=== PATIENT | male | born 1990 | race African-American/Black ===

== ENCOUNTER 2018-04-11 22:24 | Emergency (ER) | payer SELFPAY ==
[~2018-04-11] VITALS: Ht 170.2 cm; Wt 59.0 kg
[2018-04-12] MEDS ORDERED: SODIUM CHLORIDE 0.9% 1,000 ML IV ONE (02:35)
[2018-04-12] MEDS ORDERED: DICYCLOMINE 10 MG/5 ML ORAL SYR PO STA (02:35)
[2018-04-12] MEDS ORDERED: ONDANSETRON HCL 4MG/2ML VIAL IV STA (02:35)
[2018-04-12] MEDS ORDERED: MORPHINE SULFATE 4 MG/ML CPJ (NOT FOR IM USE) IV STA (02:35)
[2018-04-12 03:02] LABS: HEMATOCRIT. 40.6 % (42.0-52.0); HEMOGLOBIN. 13.4 g/dL (14.0-18.0); MEAN CORPUSCULAR HEMOGLOBIN 27.9 pg (28.0-32.0); MEAN CORPUSCULAR VOLUME 84.2 fL (80.0-94.0); MEAN PLATELET VOLUME 7.6 fl (7.4-10.4); PLATELET 250 x1000/uL (130-400); RED BLOOD CELL COUNT 4.82 mill/uL (4.7-6.1)
[2018-04-12 03:06] LABS: CHLORIDE 103 mEq/L (98-107)
[2018-04-12] MEDS ORDERED: IOHEXOL-300 100 ML BOTTLE ONE (04:09)
[2018-04-12 04:23] LABS: CLARITY URINE CLEAR (CLEAR); COLOR URINE YELLOW (YELLOW); KETONES URINE NEGATIVE (NEGATIVE); LEUKOCYTE ESTERASE URINE NEGATIVE (NEGATIVE); NITRITE URINE NEGATIVE (NEGATIVE); OCCULT BLOOD URINE NEGATIVE (NEGATIVE); PH URINE 6.5 (4.5-8.0); PROTEIN URINE TRACE (NEGATIVE); SPECIFIC GRAVITY URINE 1.053 (1.005-1.030)
[2018-04-12 06:30] VITALS: BP 116/70
[2018-04-12 06:52] LABS: ATYPICAL LYMPHOCYTES 4
[2018-04-12 06:53] LABS: PLATELET ESTIMATE NORMAL
== END 2018-04-12 06:34 | disposition home or self-care (01) ==
LOC: ER 22:24
DX: K52.9 Noninfective gastroenteritis and colitis, unspecified (principal); F17.200 Nicotine dependence, unspecified, uncomplicated
CPT/HCPCS: 36415; 74177; 80053; 81003; 83690; 85025; 96361; 96374; 96375; 99285; J2270; J2405; J7030; Q9967; Z7610

== ENCOUNTER 2018-09-01 11:58 | Emergency (ER) | payer MEDICAID ==
[~2018-09-01] VITALS: Ht 170.2 cm; Wt 64.0 kg
[2018-09-01 12:04] VITALS: BP 128/64
[2018-09-01] MEDS ORDERED: BACITRACIN ZINC OINT UDPKT TOP ONE (15:00)
== END 2018-09-01 16:33 | disposition home or self-care (01) ==
LOC: ER 13:20
DX: M79.672 Pain in left foot (principal); M25.562 Pain in left knee; Z88.3 Allergy status to other anti-infective agents
CPT/HCPCS: 73630; 99284

== ENCOUNTER 2018-09-05 13:13 | Emergency (ER) | payer MEDICAID ==
[~2018-09-05] VITALS: Ht 170.2 cm; Wt 64.0 kg
[2018-09-05 13:36] VITALS: BP 122/62
== END 2018-09-05 17:30 | disposition left against medical advice (07) ==
LOC: ER 15:46
DX: Z53.21 Procedure and treatment not carried out due to patient leaving prior to being seen by health care provider (principal)

== ENCOUNTER 2019-03-08 10:44 | Emergency (ER) | payer MEDICAID ==
[~2019-03-08] VITALS: Ht 170.2 cm; Wt 66.0 kg
[2019-03-08 12:39] VITALS: BP 115/77
== END 2019-03-08 12:40 | disposition home or self-care (01) ==
LOC: ER 10:44
DX: T16.1XXA Foreign body in right ear, initial encounter (principal); X58.XXXA Exposure to other specified factors, initial encounter; Y93.89 Activity, other specified; Y92.89 Other specified places as the place of occurrence of the external cause; Y99.8 Other external cause status
CPT/HCPCS: 69200; 99284

== ENCOUNTER 2022-02-09 14:06 | Emergency (ER) | payer MEDICAID, OTHER ==
[~2022-02-09] VITALS: Ht 177.8 cm; Wt 85.0 kg
[~2022-02-09 14:06] MED LIST: ETOMIDATE 2MG/ML 10ML VIAL IV ONE; SUCCINYLCHOLINE CHLORIDE 200MG/10ML IV ONE
[2022-02-09] MEDS ORDERED: MORPHINE SULFATE 4 MG/ML CPJ (NOT FOR IM USE) IV STA (14:22)
[2022-02-09] MEDS ORDERED: TETANUS, DIPHTHERIA, PERTUSSIS VAC/PF 0.5ML (>10YR OLD) IM ONE (14:30)
[2022-02-09] MEDS ORDERED: ROCURONIUM BROMIDE 10MG/ML VIAL 5ML IV ONE (14:30)
[2022-02-09] MEDS ORDERED: PROPOFOL 10MG/ML 100ML 100 ML IV ONE (14:30)
[2022-02-09] MEDS: LACTATED RINGERS 1,000 ML IV SCH ×5 (14:30→20:30)
[2022-02-09] MEDS ORDERED: MIDAZOLAM 100MG/100ML PMX 100 ML IV PRN (14:55)
[2022-02-09] MEDS ORDERED: MIDAZOLAM HCL 2 MG/2 ML VIAL IM NR (14:55)
[2022-02-09] MEDS ORDERED: MIDAZOLAM HCL 100 MG in DEXT 5% WATER 80 ML IV ONE ×2 (15:00)
[2022-02-09 15:36] LABS: BASOPHILS % 0.9 % (0.0-2.0); EOSINOPHILS % 1.4 % (0.0-5.0); HEMATOCRIT. 39.4 % (42.0-52.0); LYMPHOCYTES % 29.1 % (20.0-50.0); MEAN CORPUSCULAR HEMOGLOBIN 27.5 pg (28.0-32.0); MEAN CORPUSCULAR VOLUME 83.1 fL (80.0-94.0); MEAN PLATELET VOLUME 7.7 fl (7.4-10.4); MONOCYTES % 10.1 % (2.0-8.0); NEUTROPHILS % 58.5 % (40.0-76.0); PLATELET 270 x1000/uL (130-400); RED BLOOD CELL COUNT 4.74 mill/uL (4.7-6.1); RED CELL DISTRIBUTION WIDTH 16.4 % (11.6-14.6)
[2022-02-09 15:42] LABS: CHLORIDE 109 mEq/L (98-107)
[2022-02-09 15:47] LABS: ETHANOL BLOOD < 10 mg/dL
[2022-02-09 15:51] LABS: CREATINE KINASE 205 IU/L (39-308)
[2022-02-09 16:02] LABS: CLARITY URINE CLEAR (CLEAR); COLOR URINE YELLOW (YELLOW); KETONES URINE NEGATIVE (NEGATIVE); LEUKOCYTE ESTERASE URINE NEGATIVE (NEGATIVE); NITRITE URINE NEGATIVE (NEGATIVE); OCCULT BLOOD URINE NEGATIVE (NEGATIVE); PROTEIN URINE TRACE (NEGATIVE); SPECIFIC GRAVITY URINE 1.021 (1.005-1.030)
[2022-02-09 16:26] LABS: *AMPHETAMINES SCREEN URINE PRESUMTIVE POSITIVE (NEGATIVE); *BARBITURATES SCREEN URINE NEGATIVE (NEGATIVE); *BENZODIAZEPINES SCREEN URINE PRESUMTIVE POSITIVE (NEGATIVE); *COCAINE SCREEN URINE NEGATIVE (NEGATIVE); METHADONE URINE SCREEN NEGATIVE (NEGATIVE)
[2022-02-09 16:27] LABS: CANNABINOID URINE SCREEN PRESUMTIVE POSITIVE (NEGATIVE); OPIATES URINE SCREEN NEGATIVE (NEGATIVE); PHENCYCLIDINE URINE SCREEN NEGATIVE (NEGATIVE)
[2022-02-09 17:20] LABS: BG BASE EXCESS -0.7 mmol/L (-2.0-2.0); BG CARBOXYHEMOGLOBIN 1.3 % (0.5-1.5); BG DEOXYHEMOGLOBIN 1.8 % (0.0-5.0); BG FRACTION INSPIRED OXYGEN 60; BG HCO3 ACT 24.9 mmol/L (22.0-26.0); BG METHEMOGLOBIN 0.3 % (0.0-1.5); BG OXYGEN SATURATION 98.2 % (92.0-98.5); BG OXYHEMOGLOBIN 96.6 % (94.0-97.0); BG PCO2 44.7 mmHg (35.0-45.0); BG PH 7.364 (7.350-7.450); BG PO2 140.5 mmHg (75.0-100.0); BG SAMPLE SITE LEFT RADIAL; BG TOTAL HEMOGLOBIN 13.4 g/dL (12.0-18.0); BG VENT MODE VENT - AC
[2022-02-09] MEDS ORDERED: FENTANYL 2500MCG/250ML PMX 250 ML IV PRN ×2 (19:45→20:15)
[2022-02-10] MEDS: LACTATED RINGERS 1,000 ML IV SCH ×5 (00:30→11:41)
[2022-02-10 12:30] VITALS: BP 118/63
== END 2022-02-10 13:00 | disposition short-term general hospital (02) ==
LOC: ER 14:06
DX: T20.26XA Burn of second degree of forehead and cheek, initial encounter (principal); T23.101A Burn of first degree of right hand, unspecified site, initial encounter; T31.0 Burns involving less than 10% of body surface; X08.8XXA Exposure to other specified smoke, fire and flames, initial encounter; T59.814A Toxic effect of smoke, undetermined, initial encounter; Z20.822 Contact with and (suspected) exposure to COVID-19; F13.10 Sedative, hypnotic or anxiolytic abuse, uncomplicated; F15.10 Other stimulant abuse, uncomplicated; F12.10 Cannabis abuse, uncomplicated; Y93.89 Activity, other specified; F20.9 Schizophrenia, unspecified; I51.7 Cardiomegaly; Y92.89 Other specified places as the place of occurrence of the external cause
CPT/HCPCS: 31500; 36415; 36600; 71045; 80053; 80305; 80307; 80320; 80329; 81003; 82375; 82550; 82805; 83690; 85025; 87426; 90471; 90715; 94003; 96361; 96372; 96374; 96375; 99291; J0330; J2250; J2704; J3010; J3490; J7120; Z7610; 94002; A4315; G0480

== ENCOUNTER 2022-02-25 06:41 | Inpatient (IN) | payer MEDICAID, OTHER ==
[2022-02-25] VITALS (28 sets, daily range): BP systolic 130–156; BP diastolic 92–117
[~2022-02-25] VITALS: Ht 180.3 cm; Wt 72.1 kg
[2022-02-25] MEDS ORDERED: PROPOFOL 10MG/ML 100ML 100 ML IV ONE ×2 (07:30→10:45)
[2022-02-25] MEDS ORDERED: MIDAZOLAM HCL 100 MG in DEXT 5% WATER 80 ML IV ONE (07:30)
[2022-02-25] MEDS ORDERED: ETOMIDATE 2MG/ML 10ML VIAL IV ONE (07:44)
[2022-02-25] MEDS ORDERED: VECURONIUM BROMIDE 10 MG/VIAL IV ONE (07:44)
[2022-02-25] MEDS ORDERED: SODIUM CHLORIDE 0.9% 10ML VIAL ONE (07:44)
[2022-02-25] MEDS ORDERED: MIDAZOLAM 100MG/100ML PREMIX IV PRN (07:45)
[2022-02-25] MEDS ORDERED: FENTANYL 2500MCG/250ML PMX 250 ML IV STA (07:53)
[2022-02-25] MEDS ORDERED: ONDANSETRON HCL 4MG/2ML INJ IV ONE (08:30)
[2022-02-25] MEDS ORDERED: FENTANYL 2500MCG/250ML PMX 250 ML IV PRN (08:30)
[2022-02-25 08:36] LABS: CLARITY URINE CLEAR (CLEAR); COLOR URINE YELLOW (YELLOW); KETONES URINE 1+ (NEGATIVE); LEUKOCYTE ESTERASE URINE NEGATIVE (NEGATIVE); NITRITE URINE NEGATIVE (NEGATIVE); OCCULT BLOOD URINE NEGATIVE (NEGATIVE); PROTEIN URINE NEGATIVE (NEGATIVE); SPECIFIC GRAVITY URINE 1.024 (1.005-1.030)
[2022-02-25 08:44] LABS: BG CARBOXYHEMOGLOBIN 1.7 % (0.5-1.5); BG DEOXYHEMOGLOBIN 0.4 % (0.0-5.0); BG FRACTION INSPIRED OXYGEN 100; BG HCO3 ACT 25.2 mmol/L (22.0-26.0); BG METHEMOGLOBIN 0.3 % (0.0-1.5); BG OXYGEN SATURATION 99.6 % (92.0-98.5); BG OXYHEMOGLOBIN 97.6 % (94.0-97.0); BG PCO2 52.6 mmHg (35.0-45.0); BG PH 7.298 (7.350-7.450); BG PO2 276.9 mmHg (75.0-100.0); BG SAMPLE SITE RIGHT RADIAL; BG TOTAL HEMOGLOBIN 14.6 g/dL (12.0-18.0); BG VENT MODE VENT - AC
[2022-02-25 08:49] LABS: BASOPHILS % 1.1 % (0.0-2.0); EOSINOPHILS % 0.7 % (0.0-5.0); HEMATOCRIT. 47.2 % (42.0-52.0); HEMOGLOBIN. 15.8 g/dL (14.0-18.0); LYMPHOCYTES % 22.2 % (20.0-50.0); MEAN CORPUSCULAR HEMOGLOBIN 28.5 pg (28.0-32.0); MEAN PLATELET VOLUME 7.6 fl (7.4-10.4); MONOCYTES % 6.8 % (2.0-8.0); NEUTROPHILS % 69.2 % (40.0-76.0); PLATELET 358 x1000/uL (130-400); RED BLOOD CELL COUNT 5.56 mill/uL (4.7-6.1); RED CELL DISTRIBUTION WIDTH 15.9 % (11.6-14.6)
[2022-02-25 09:02] LABS: *AMPHETAMINES SCREEN URINE PRESUMTIVE POSITIVE (NEGATIVE); *BARBITURATES SCREEN URINE NEGATIVE (NEGATIVE); *BENZODIAZEPINES SCREEN URINE NEGATIVE (NEGATIVE); *COCAINE SCREEN URINE NEGATIVE (NEGATIVE)
[2022-02-25 09:03] LABS: CHLORIDE 107 mEq/L (98-107)
[2022-02-25 09:03] LABS: CANNABINOID URINE SCREEN PRESUMTIVE POSITIVE (NEGATIVE); METHADONE URINE SCREEN NEGATIVE (NEGATIVE); OPIATES URINE SCREEN NEGATIVE (NEGATIVE); PHENCYCLIDINE URINE SCREEN NEGATIVE (NEGATIVE)
[2022-02-25 09:07] LABS: ETHANOL BLOOD < 10 mg/dL
[2022-02-25] MEDS ORDERED: CALCIUM GLUCONATE 1GM PREMIX 50 ML IV ONE (11:45)
[2022-02-25] MEDS ORDERED: CEFTRIAXONE 1 G PREMIX 50 ML IV ONE (12:00)
[2022-02-25] MEDS ORDERED: ONDANSETRON HCL 4MG/2ML INJ IV PRN (12:15)
[2022-02-25] MEDS ORDERED: SODIUM POLYSTYRENE SULFONATE 15 G/60 ML BOT NG NR (12:30)
[2022-02-25] MEDS ORDERED: PIPERACILLIN/TAZ 3.375G PREMIX 50 ML IV NR (12:30)
[2022-02-25] MEDS: PANTOPRAZOLE SODIUM 40 MG/VIAL IV SCH (12:35)
[2022-02-25] MEDS: DEXT 5%/0.45% NACL 1000ML 1,000 ML IV SCH (12:36)
[2022-02-25] MEDS ORDERED: LIDOCAINE HCL 1% 10 MG/ML 10ML VIAL ONE (12:56)
[2022-02-25] MEDS: ENOXAPARIN 40MG/0.4ML SYR SUBCUT SCH (13:13)
[2022-02-25] MEDS ORDERED: IPRATROPIUM/ALBUTEROL 0.5-3(2.5)MG/3ML NEB HHN PRN (14:00)
[2022-02-25] MEDS ORDERED: FENTANYL CITRATE/PF 1,000 MCG in SODIUM CHLORIDE 0.9% 80 ML IV PRN (14:00)
[2022-02-25] MEDS ORDERED: MIDAZOLAM HCL 100 MG in SODIUM CHLORIDE 0.9% 80 ML IV PRN (14:00)
[2022-02-25] MEDS: PROPOFOL 10MG/ML 100ML 100 ML IV PRN ×3 (14:49→22:56)
[2022-02-25] MEDS: IPRATROPIUM/ALBUTEROL 0.5-3(2.5)MG/3ML NEB HHN SCH (20:38)
[2022-02-25] MEDS: RISPERIDONE 1MG TABLET PO SCH (21:13)
[2022-02-25] MEDS ORDERED: PIPERACILLIN/TAZOBACTAM 3.375 G in DEXTROSE 5% WATER 50 ML IV SCH (22:00)
[2022-02-25] MEDS: PIPERACILLIN/TAZOBACTAM 3.375 G in DEXTROSE 5% WATER 50 ML IV SCH (22:55)
[2022-02-25] MEDS: MIDAZOLAM HCL 100 MG in SODIUM CHLORIDE 0.9% 80 ML IV PRN (22:57)
[2022-02-26] VITALS (91 sets, daily range): BP systolic 105–166; BP diastolic 57–120
[2022-02-26] MEDS: IPRATROPIUM/ALBUTEROL 0.5-3(2.5)MG/3ML NEB HHN SCH ×5 (00:39→23:54)
[2022-02-26] MEDS: DEXT 5%/0.45% NACL 1000ML 1,000 ML IV SCH ×3 (02:49→23:59)
[2022-02-26] MEDS: PROPOFOL 10MG/ML 100ML 100 ML IV PRN ×5 (02:50→20:30)
[2022-02-26 05:22] LABS: BASOPHILS % 0.7 % (0.0-2.0); EOSINOPHILS % 1.5 % (0.0-5.0); HEMATOCRIT. 40.2 % (42.0-52.0); HEMOGLOBIN. 13.3 g/dL (14.0-18.0); LYMPHOCYTES % 25.8 % (20.0-50.0); MEAN CORPUSCULAR VOLUME 84.7 fL (80.0-94.0); MEAN PLATELET VOLUME 8.2 fl (7.4-10.4); MONOCYTES % 9.4 % (2.0-8.0); NEUTROPHILS % 62.6 % (40.0-76.0); PLATELET 313 x1000/uL (130-400); RED BLOOD CELL COUNT 4.75 mill/uL (4.7-6.1); RED CELL DISTRIBUTION WIDTH 15.5 % (11.6-14.6)
[2022-02-26 05:31] LABS: CHLORIDE 108 mEq/L (98-107)
[2022-02-26] MEDS: PIPERACILLIN/TAZOBACTAM 3.375 G in DEXTROSE 5% WATER 50 ML IV SCH ×3 (06:05→20:30)
[2022-02-26] MEDS: FENTANYL 2500MCG/250ML PMX 250 ML IV PRN (06:06)
[2022-02-26 07:43] LABS: BG BASE EXCESS 1.9 mmol/L (-2.0-2.0); BG CARBOXYHEMOGLOBIN 0.1 % (0.5-1.5); BG DEOXYHEMOGLOBIN 0.7 % (0.0-5.0); BG HCO3 ACT 25.5 mmol/L (22.0-26.0); BG METHEMOGLOBIN 0.1 % (0.0-1.5); BG OXYGEN SATURATION 99.3 % (92.0-98.5); BG OXYHEMOGLOBIN 99.1 % (94.0-97.0); BG PCO2 36.9 mmHg (35.0-45.0); BG PH 7.458 (7.350-7.450); BG PO2 211.3 mmHg (75.0-100.0); BG SAMPLE SITE RIGHT RADIAL; BG TOTAL HEMOGLOBIN 13.4 g/dL (12.0-18.0); BG VENT MODE VENT - AC
[2022-02-26] MEDS ORDERED: POTASSIUM CHLORIDE 20MEQ/PACKET PO SCH (08:00)
[2022-02-26] MEDS: RISPERIDONE 1MG TABLET PO SCH ×2 (08:35→20:30)
[2022-02-26] MEDS: PANTOPRAZOLE SODIUM 40 MG/VIAL IV SCH (08:35)
[2022-02-26] MEDS ORDERED: INFLUENZA VACCINE 05/PF 0.5 ML SYRINGE IM ONE (09:00)
[2022-02-26] MEDS: ENOXAPARIN 40MG/0.4ML SYR SUBCUT SCH (12:14)
[2022-02-27] VITALS (98 sets, daily range): BP systolic 83–153; BP diastolic 42–115
[2022-02-27] MEDS: PROPOFOL 10MG/ML 100ML 100 ML IV PRN ×6 (00:02→22:47)
[2022-02-27] MEDS: FENTANYL 2500MCG/250ML PMX 250 ML IV PRN ×2 (03:05→15:10)
[2022-02-27] MEDS: MIDAZOLAM HCL 100 MG in SODIUM CHLORIDE 0.9% 80 ML IV PRN ×2 (03:07→15:11)
[2022-02-27] MEDS: PIPERACILLIN/TAZOBACTAM 3.375 G in DEXTROSE 5% WATER 50 ML IV SCH ×3 (06:00→21:25)
[2022-02-27 08:19] LABS: BASOPHILS % 0.2 % (0.0-2.0); EOSINOPHILS % 2.1 % (0.0-5.0); HEMATOCRIT. 37.2 % (42.0-52.0); HEMOGLOBIN. 12.3 g/dL (14.0-18.0); LYMPHOCYTES % 25.3 % (20.0-50.0); MEAN CORPUSCULAR HEMOGLOBIN 28.2 pg (28.0-32.0); MEAN PLATELET VOLUME 8.1 fl (7.4-10.4); MONOCYTES % 13.5 % (2.0-8.0); NEUTROPHILS % 58.9 % (40.0-76.0); PLATELET 271 x1000/uL (130-400); RED BLOOD CELL COUNT 4.37 mill/uL (4.7-6.1); RED CELL DISTRIBUTION WIDTH 15.8 % (11.6-14.6)
[2022-02-27] MEDS: RISPERIDONE 1MG TABLET PO SCH ×2 (08:21→21:25)
[2022-02-27] MEDS: ACETAMINOPHEN 325MG TABLET PO PRN ×2 (08:21→21:25)
[2022-02-27] MEDS: PANTOPRAZOLE SODIUM 40 MG/VIAL IV SCH (08:21)
[2022-02-27 08:23] LABS: CHLORIDE 106 mEq/L (98-107)
[2022-02-27 08:58] LABS: BG BASE EXCESS 3.8 mmol/L (-2.0-2.0); BG CARBOXYHEMOGLOBIN 0.3 % (0.5-1.5); BG DEOXYHEMOGLOBIN 1.5 % (0.0-5.0); BG FRACTION INSPIRED OXYGEN 40; BG HCO3 ACT 30.6 mmol/L (22.0-26.0); BG METHEMOGLOBIN 0.1 % (0.0-1.5); BG OXYGEN SATURATION 98.5 % (92.0-98.5); BG OXYHEMOGLOBIN 98.1 % (94.0-97.0); BG PCO2 56.5 mmHg (35.0-45.0); BG PH 7.352 (7.350-7.450); BG PO2 131.3 mmHg (75.0-100.0); BG SAMPLE SITE RIGHT RADIAL; BG TOTAL HEMOGLOBIN 12.4 g/dL (12.0-18.0); BG VENT MODE VENT - AC
[2022-02-27] MEDS: IPRATROPIUM/ALBUTEROL 0.5-3(2.5)MG/3ML NEB HHN SCH ×3 (09:03→21:21)
[2022-02-27] MEDS: ENOXAPARIN 40MG/0.4ML SYR SUBCUT SCH (13:43)
[2022-02-27] MEDS: DEXT 5%/0.45% NACL 1000ML 1,000 ML IV SCH (17:56)
[2022-02-28] VITALS (81 sets, daily range): BP systolic 83–182; BP diastolic 39–119
[2022-02-28] MEDS: IPRATROPIUM/ALBUTEROL 0.5-3(2.5)MG/3ML NEB HHN SCH ×4 (02:19→20:24)
[2022-02-28] MEDS: PIPERACILLIN/TAZOBACTAM 3.375 G in DEXTROSE 5% WATER 50 ML IV SCH ×3 (05:58→21:24)
[2022-02-28] MEDS: FENTANYL 2500MCG/250ML PMX 250 ML IV PRN (05:59)
[2022-02-28] MEDS: PROPOFOL 10MG/ML 100ML 100 ML IV PRN (07:09)
[2022-02-28] MEDS: DEXT 5%/0.45% NACL 1000ML 1,000 ML IV SCH ×2 (08:25→20:15)
[2022-02-28] MEDS: PANTOPRAZOLE SODIUM 40 MG/VIAL IV SCH (08:26)
[2022-02-28] MEDS: RISPERIDONE 1MG TABLET PO SCH ×2 (08:26→20:19)
[2022-02-28 08:42] LABS: BG CARBOXYHEMOGLOBIN 0.1 % (0.5-1.5); BG DEOXYHEMOGLOBIN 1.4 % (0.0-5.0); BG FRACTION INSPIRED OXYGEN 40; BG METHEMOGLOBIN 0.4 % (0.0-1.5); BG OXYGEN SATURATION 98.6 % (92.0-98.5); BG OXYHEMOGLOBIN 98.1 % (94.0-97.0); BG PCO2 44.8 mmHg (35.0-45.0); BG PH 7.414 (7.350-7.450); BG PO2 132.8 mmHg (75.0-100.0); BG SAMPLE SITE RIGHT RADIAL; BG TOTAL HEMOGLOBIN 11.3 g/dL (12.0-18.0); BG VENT MODE VENT - AC
[2022-02-28] MEDS: ACETAMINOPHEN 325MG TABLET PO PRN (09:28)
[2022-02-28] MEDS: MIDAZOLAM HCL 100 MG in SODIUM CHLORIDE 0.9% 80 ML IV PRN (09:45)
[2022-02-28 10:11] LABS: BASOPHILS % 1.2 % (0.0-2.0); EOSINOPHILS % 2.1 % (0.0-5.0); HEMATOCRIT. 33.2 % (42.0-52.0); HEMOGLOBIN. 10.8 g/dL (14.0-18.0); LYMPHOCYTES % 30.5 % (20.0-50.0); MEAN CORPUSCULAR VOLUME 85.7 fL (80.0-94.0); MONOCYTES % 12.2 % (2.0-8.0); PLATELET 219 x1000/uL (130-400); RED BLOOD CELL COUNT 3.87 mill/uL (4.7-6.1); RED CELL DISTRIBUTION WIDTH 15.3 % (11.6-14.6)
[2022-02-28 10:20] LABS: CHLORIDE 106 mEq/L (98-107)
[2022-02-28] MEDS: ENOXAPARIN 40MG/0.4ML SYR SUBCUT SCH (12:54)
[2022-02-28] MEDS: FLUOXETINE HCL 10 MG CAPSULE PO SCH (12:57)
[2022-02-28] MEDS: LORAZEPAM 2MG/ML CPJ IM PRN ×2 (13:21→20:19)
[2022-03-01] VITALS (47 sets, daily range): BP systolic 95–152; BP diastolic 36–111
[2022-03-01] MEDS: IPRATROPIUM/ALBUTEROL 0.5-3(2.5)MG/3ML NEB HHN SCH ×2 (02:19→07:39)
[2022-03-01] MEDS: PIPERACILLIN/TAZOBACTAM 3.375 G in DEXTROSE 5% WATER 50 ML IV SCH ×3 (05:53→21:12)
[2022-03-01] MEDS: RISPERIDONE 1MG TABLET PO SCH ×2 (08:07→20:26)
[2022-03-01] MEDS: FLUOXETINE HCL 10 MG CAPSULE PO SCH (08:07)
[2022-03-01] MEDS: PANTOPRAZOLE SODIUM 40 MG/VIAL IV SCH (08:07)
[2022-03-01] MEDS: DEXT 5%/0.45% NACL 1000ML 1,000 ML IV SCH (08:35)
[2022-03-01 11:03] LABS: BASOPHILS % 0.5 % (0.0-2.0); EOSINOPHILS % 1.2 % (0.0-5.0); HEMOGLOBIN. 11.7 g/dL (14.0-18.0); LYMPHOCYTES % 12.3 % (20.0-50.0); MEAN CORPUSCULAR HEMOGLOBIN 28.1 pg (28.0-32.0); MEAN PLATELET VOLUME 8.1 fl (7.4-10.4); MONOCYTES % 8.6 % (2.0-8.0); NEUTROPHILS % 77.4 % (40.0-76.0); PLATELET 255 x1000/uL (130-400); RED BLOOD CELL COUNT 4.16 mill/uL (4.7-6.1); RED CELL DISTRIBUTION WIDTH 14.7 % (11.6-14.6)
[2022-03-01 11:10] LABS: CHLORIDE 103 mEq/L (98-107)
[2022-03-01] MEDS: ENOXAPARIN 40MG/0.4ML SYR SUBCUT SCH (12:02)
[2022-03-01] MEDS ORDERED: MULT-1116 PO (14:52)
[2022-03-01] MEDS ORDERED: MIRT-89 PO (14:52)
[2022-03-01] MEDS ORDERED: THIA100T88 PO (14:52)
[2022-03-01] MEDS ORDERED: GABA-529 PO (14:52)
[2022-03-01] MEDS ORDERED: DIVA-75 PO (14:52)
[2022-03-01] MEDS: LORAZEPAM 2MG/ML CPJ IM PRN (21:03)
[2022-03-02] VITALS (21 sets, daily range): BP systolic 77–141; BP diastolic 63–99
[2022-03-02] MEDS: PIPERACILLIN/TAZOBACTAM 3.375 G in DEXTROSE 5% WATER 50 ML IV SCH ×2 (07:09→13:41)
[2022-03-02] MEDS: PANTOPRAZOLE SODIUM 40 MG/VIAL IV SCH (08:36)
[2022-03-02] MEDS: FLUOXETINE HCL 10 MG CAPSULE PO SCH (08:36)
[2022-03-02] MEDS: RISPERIDONE 1MG TABLET PO SCH (08:36)
[2022-03-02] MEDS: ENOXAPARIN 40MG/0.4ML SYR SUBCUT SCH (13:41)
[2022-03-03 09:07] LABS: ABSOLUTE EOSINOPHILS 0.2 x10E3/uL (0.0-0.4); ABSOLUTE LYMPHOCYTES 1.9 x10E3/uL (0.7-3.1); ABSOLUTE MONOCYTES 0.6 x10E3/uL (0.1-0.9); ABSOLUTE NEUTROPHILS 3.2 x10E3/uL (1.4-7.0); BASOPHILS 0 % (Not Estab.); HEMATOCRIT 39.2 % (37.5-51.0); HEMOGLOBIN 12.8 g/dL (13.0-17.7); IMMATURE GRANULOCYTES 0 % (Not Estab.); LYMPHOCYTES 31 % (Not Estab.); MEAN CORPUSCULAR HEMOGLOBIN 27.9 pg (26.6-33.0); MEAN CORPUSCULAR HGB CONC. 32.7 g/dL (31.5-35.7); MEAN CORPUSCULAR VOLUME 86 fL (79-97); MONOCYTES 11 % (Not Estab.); NEUTROPHILS 55 % (Not Estab.); PLATELETS 301 x10E3/uL (150-450); RBC 4.58 x10E6/uL (4.14-5.80); WBC 5.9 x10E3/uL (3.4-10.8)
[2022-03-03 10:08] LABS: % CD 4 POS. LYMPHOCYTES 35.6 % (30.8-58.5); % CD 8 POS. LYMPH 39.7 % (12.0-35.5); ABSOLUTE CD 3 1444 /uL (622-2402); ABSOLUTE CD 4 HELPER 676 /uL (359-1519); ABSOLUTE CD 8 SUPPRESSOR 754 /uL (109-897)
[2022-03-05 14:12] LABS: *HIV-1 RNA BY PCR 20 copies/mL (.)
== END 2022-03-02 16:26 | disposition home or self-care (01) | DRG 720 ==
LOC: ER 06:41 → MICUSO 10:12 → ENRESERV 15:19 → CVICU 02-26 22:00 → 6EST 03-02 10:10
PROVIDERS: ADMIT Hospitalist; ATTEND Hospitalist
PROC: 5A1945Z Respiratory Ventilation, 24-96 Consecutive Hours (ICD-10-PCS; principal; 2022-02-25)
PROC: 0BH17EZ Insertion of Endotracheal Airway into Trachea, Via Natural or Artificial Opening (ICD-10-PCS; 2022-02-25)
PROC: B54MZZA Ultrasonography of Right Upper Extremity Veins, Guidance (ICD-10-PCS; 2022-02-25)
PROC: 05HY33Z Insertion of Infusion Device into Upper Vein, Percutaneous Approach (ICD-10-PCS; 2022-02-25)
DX: A41.9 Sepsis, unspecified organism (principal); J96.02 Acute respiratory failure with hypercapnia; J69.0 Pneumonitis due to inhalation of food and vomit; G93.40 Encephalopathy, unspecified; T40.711A Poisoning by cannabis, accidental (unintentional), initial encounter; E87.5 Hyperkalemia; F17.210 Nicotine dependence, cigarettes, uncomplicated; F20.9 Schizophrenia, unspecified; F33.9 Major depressive disorder, recurrent, unspecified; Y92.89 Other specified places as the place of occurrence of the external cause; Z78.1 Physical restraint status; F19.10 Other psychoactive substance abuse, uncomplicated; Z21 Asymptomatic human immunodeficiency virus [HIV] infection status; Z87.898 Personal history of other specified conditions
CPT/HCPCS: 36415; 36600; 71045; 76937; 80048; 80053; 80305; 80307; 80320; 80329; 81003; 82375; 82805; 82962; 83605; 83880; 84478; 84484; 85025; 86359; 86360; 87070; 87536; 93005; 94002; 94003; 94640; 99291; A6261; C1725; C9113; J0610; J0696; J1650; J2060; J2250; J2405; J2543; J2704; J3010; J3490; J7040; J7050; J7060; A4315; G0480